=== PATIENT | male | born 1990 | race Two or more races ===

== ENCOUNTER 2021-11-07 08:56 | Day surgery (SDC) | payer OTHER ==
[~2021-11-07] VITALS: Ht 180.3 cm; Wt 97.4 kg
[2021-11-07] VITALS (16 sets, daily range): BP systolic 124–157; BP diastolic 63–95
[~2021-11-07 08:56] MED LIST: ALBU6.7H9 INH; LEVA15HF4 INH; cefazolin/dext.iso 2gm/50ml IV ONE; famotidine 20mg tablet PO ONE; ringers solution, lacted 1,000 ML IV SCH
[2021-11-07] MEDS ORDERED: ROPIVAcaine 0.5% (5mg/ml) 30ml vial ONE ×2 (12:12→13:34)
[2021-11-07] MEDS ORDERED: epiNEPHrine 1 mg/ml inj ONE (12:13)
[2021-11-07] MEDS ORDERED: gelatin sponge, absorbable (Gelfoam 100) sponge TP ONE (12:13)
[2021-11-07] MEDS ORDERED: Thrombin (Bovine) 5,000 unit vial TP ONE (12:13)
[2021-11-07] MEDS ORDERED: sevoflurane 250ml liquid IH ONE (12:27)
[2021-11-07] MEDS ORDERED: fentaNYL /PF 50mcg/ml 5ml ampule ONE (12:30)
[2021-11-07] MEDS ORDERED: midazolam 1 mg/ML 2ml injection ONE (12:30)
[2021-11-07] MEDS ORDERED: proCHLORperazine 10 MG/2 ml inj IV PRN (12:40)
[2021-11-07] MEDS ORDERED: ringers solution, lacted 1,000 ML IV SCH (12:40)
[2021-11-07] MEDS ORDERED: morphine 4 MG/ML inj SYRINge IV PRN (12:40)
[2021-11-07] MEDS ORDERED: morphine 2 MG/ML inj. syringe IV PRN (12:40)
[2021-11-07] MEDS ORDERED: ondansetron/PF 4mg/2ml inj IV PRN (12:40)
[2021-11-07] MEDS ORDERED: meperidine/PF 25mg/ml syringe IV PRN ×2 (12:40)
[2021-11-07] MEDS ORDERED: dexamethasone sod phosphate 4mg/ml inj. ONE (12:44)
[2021-11-07] MEDS ORDERED: acetaminophen 1,000mg/100ml IV 100 ML IV ONE (12:44)
[2021-11-07] MEDS ORDERED: propofol inj 20 ML IV ONE (12:44)
[2021-11-07] MEDS ORDERED: ondansetron/PF 4mg/2ml inj ONE (12:44)
[2021-11-07] MEDS ORDERED: LIDOcaine 2% (20mg/ml) 5ml vial ONE (12:44)
[2021-11-07] MEDS ORDERED: ePHEDrine 50MG/ML INJ. ONE (13:08)
[2021-11-07] MEDS ORDERED: fentaNYL/PF 50MCG/1 ML 2ML syringe ONE (13:26)
[2021-11-07] MEDS ORDERED: cloNIDine hcl/PF 100mcg/ml inj ONE (13:38)
[2021-11-07] MEDS ORDERED: meperidine/PF 25mg/ml syringe ONE (14:29)
--- NOTE | 2021-11-07 14:48 | NUR ---
Received from OR via [facility], accompanied by Anesthesiologist DR BENJAMIN and report given by Anesthesiologist AND [employer]. PT DROWSY, NO S/S OF DISTRESS/DISCOMFORT. RIGHT LEG IN ROMEO [place]IS[place] CDI. Addendum: 11/07/21 at 1537 by Mary Puente RN Amended: Links added.
[2021-11-07] MEDS: meperidine/PF 25mg/ml syringe IV PRN ×2 (15:44→15:49)
[2021-11-07] MEDS ORDERED: oxyCODONE IR 5mg (immed. release) tablet PO ONE (16:15)
--- NOTE | 2021-11-07 17:08 | NUR ---
PTS PAIN LEVEL IS NOW TOLERABLE, PT VOIDED, DRESSED BY CORRECTIONAL OFFICERS AND D/CD VIA W/C TO [facility] BACK TO [facility]. Addendum: 11/07/21 at 1802 by Mary Puente RN Amended: Links added.
== END 2021-11-07 17:08 ==
LOC: PAS 08:56 → EEVIPCON 11:00 → PAS 17:08
PROVIDERS: ATTEND Orthopaedic Surgery
DX: S83.241A Other tear of medial meniscus, current injury, right knee, initial encounter (principal); S83.511A Sprain of anterior cruciate ligament of right knee, initial encounter; M17.11 Unilateral primary osteoarthritis, right knee; G89.18 Other acute postprocedural pain; J45.909 Unspecified asthma, uncomplicated; F14.90 Cocaine use, unspecified, uncomplicated; F15.90 Other stimulant use, unspecified, uncomplicated; Z98.890 Other specified postprocedural states; Z87.891 Personal history of nicotine dependence; Z79.899 Other long term (current) drug therapy; Z86.19 Personal history of other infectious and parasitic diseases; X58.XXXA Exposure to other specified factors, initial encounter; Y93.89 Activity, other specified; Y92.89 Other specified places as the place of occurrence of the external cause; Y99.8 Other external cause status
CPT/HCPCS: 29881; 29888; 64447; 76942; 82948; C1713; C1762; J0131; J0171; J0690; J0735; J1100; J2175; J2250; J2405; J2704; J2795; J3010; J3490; J7030; J7120; L1832; Z7506; Z7508; Z7512; A4215; A4618; A6449; A7000